=== PATIENT | female | born 1950 ===

== ENCOUNTER 2016-08-29 17:42 | Emergency (ER) | payer OTHER ==
[2016-08-29 17:51] VITALS: BMI 31.8
[2016-08-29 17:54] VITALS: RESP 18; O2SAT 100
[2016-08-29] MEDS ORDERED: Iohexol 240 (50 ml) PO STA (18:21)
[2016-08-29] MEDS ORDERED: Iohexol 240 (50 ml) ONE (18:30)
[2016-08-29 18:37] LABS: BASO % 0.6 % (0.0-2.0); EOS # 0.2 K/uL (0.0-0.7); EOS % 2.5 % (0.0-4.0); HEMATOCRIT 37.1 % (34.0-47.0); LYMPH # 2.9 K/uL (1.0-4.3); LYMPH % 40.5 % (20.0-40.0); MEAN CELL VOLUME 80.4 fL (81.0-99.0); MEAN CORPUSCULAR HEMOGLOBIN 25.8 pg (27.0-31.0); MEAN CORPUSCULAR HGB CONC 32.1 g/dL (33.0-37.0); MEAN PLATELET VOLUME 7.3 fL (7.2-11.7); MONO # 0.6 K/uL (0.0-0.8); MONO % 8.2 % (0.0-10.0); RED CELL DISTRIBUTION WIDTH 14.5 % (11.5-14.5); WHITE BLOOD COUNT 7.2 K/uL (4.8-10.8)
[2016-08-29 18:43] LABS: CHLORIDE 102 mmol/L (98-107); POTASSIUM 4.9 mmol/L (3.6-5.2); SODIUM 140 mmol/L (132-148)
[2016-08-29 18:45] LABS: GFR AFRICAN-AMERICAN > 60
[2016-08-29 18:46] LABS: ALB/GLOB RATIO 1.3 (1.0-2.1); ALKALINE PHOSPHATASE 69 U/L (38-126); ALT/SGPT 36 U/L (9-52); AST/SGOT 50 U/L (14-36); BILIRUBIN,TOTAL 0.8 mg/dL (0.2-1.3); BLOOD UREA NITROGEN 14 mg/dL (7-17); CALCIUM 8.6 mg/dl (8.6-10.4); CARBON DIOXIDE 25 mmol/L (22-30); GLUCOSE,RANDOM 89 mg/dL (65-105); TOTAL PROTEIN 7.6 g/dL (6.3-8.3)
[2016-08-29 18:53] LABS: RBC URINE < 1 /hpf (0-3); URINE BILIRUBIN NEGATIVE (NEGATIVE); URINE BLOOD NEGATIVE (NEGATIVE); URINE COLOR Yellow (YELLOW); URINE GLUCOSE (UA) NORMAL (Normal); URINE KETONE NEGATIVE (NEGATIVE); URINE LEUKOCYTE ESTERASE NEG Leu/uL (Negative); URINE PROTEIN NEGATIVE (NEGATIVE); URINE UROBILINOGEN NORMAL mg/dL (0.2-1.0); WBC URINE 1 /hpf (0-5)
--- NOTE | 2016-08-29 19:50 | C.PDOC ---
History Of Present Illness 65 yr old female presents to the ER with complaints of pain in the right groin area for the past 1 month. Patient states she sometimes also feels like there is a painful ball in the area. States the pain has recently worsened over the past few days. patient denies fever, nausea, vomiting, diarrhea, constipation, dysuria, hematuria, incontinence, back pain, weakness or numbness. Time Seen by Provider: 08/29/16 18:13 Chief Complaint (Nursing): Female Genitourinary History Per: Patient History/Exam Limitations: no limitations Onset/Duration Of Symptoms: Hrs (1 month ), Worse Since (Past few days) Past Medical History Reviewed: Historical Data, Nursing Documentation, Vital Signs Vital Signs: Last Vital Signs Temp 97.6 F 08/29/16 21:46 Pulse 60 08/29/16 21:46 Resp 18 08/29/16 21:46 BP 130/87 08/29/16 21:46 Pulse Ox 100 08/29/16 21:57 Family History: States: No Known Family Hx - Social History Hx Alcohol Use: No Hx Substance Use: No - Immunization History Hx Tetanus Toxoid Vaccination: No Hx Influenza Vaccination: Yes Hx Pneumococcal Vaccination: No Review Of Systems Except As Marked, All Systems Reviewed And Found Negative. Constitutional: Negative for: Fever Gastrointestinal: Negative for: Nausea, Vomiting, Diarrhea, Constipation Genitourinary: Positive for: Other (Pain in the right groin area, with a painful ball feeling. ). Negative for: Dysuria, Incontinence, Hematuria Musculoskeletal: Negative for: Back Pain Neurological: Negative for: Weakness, Numbness Physical Exam - Physical Exam Appears: Well, Non-toxic, No Acute Distress Skin: Warm, Dry, No Rash Head: Atraumatic, Normacephalic Oral Mucosa: Moist Chest: Symmetrical, No Tenderness Cardiovascular: Rhythm Regular, No Murmur Respiratory: Normal Breath Sounds, No Rales, No Rhonchi, No Stridor, No Wheezing Gastrointestinal/Abdominal: Normal Exam, Soft, No Tenderness, No Guarding, No Rebound, Hernia (When asked patient to cough and stand, possible hernia palpated on right. ) Back: Normal Inspection, No CVA Tenderness Extremity: Normal ROM, No Swelling Neurological/Psych: Oriented x3, Normal Speech, Normal Motor ED Course And Treatment - Laboratory Results Result Diagrams: 08/29/16 18:30 08/29/16 18:30 O2 Sat by Pulse Oximetry: 100 - CT Scan/US CT - Abd & Pelvis Other Rad Studies (CT/US): Read By Radiologist, Radiology Report Reviewed CT/US Interpretation: EXAM: CT Abdomen and Pelvis With Intravenous Contrast. CLINICAL HISTORY: 65 years old, female; Pain; Abdominal pain; Flank; Right lower quadrant (rlq); Additional info: Right. groin swelling, hernia? TECHNIQUE: Axial computed tomography images of the abdomen and pelvis with intravenous contrast. This CT. exam was performed using one or more of the following dose reduction techniques: automated. exposure control, adjustment of the mA and/or kV according to patient size, and/or use of iterative. reconstruction technique. Coronal and sagittal reformatted images were created and reviewed. CONTRAST: 100 mL of OMNIPAQUE 350 administered intravenously. COMPARISON: No relevant prior studies available. FINDINGS: Lower thorax: Lung bases clear without infiltrates or lobar pneumonia. ABDOMEN: Liver: Liver is morphologically normal without lesions or abnormal enhancement. Hepatic and portal. veins are patent. Gallbladder and bile ducts: Unremarkable. No calcified stones. No ductal dilation. No significant. wall thickening. Pancreas: Normal pancreas without surrounding fluid or inflammation. No ductal dilation. Spleen: Unremarkable. No splenomegaly. Adrenals: The adrenal glands are normal. Kidneys and ureters: Symmetric renal enhancement is present. No suspicious renal mass,. perinephric collection, or hydronephrosis. The ureters are normal. Stomach and bowel: The stomach is normal without gastric wall thickening or mucosal edema. Bowel loops appear within normal limits, no signs of wall thickening, mucosal edema, or bowel. distention. Appendix: The appendix is not definitively visualized. However, no secondary signs of appendicitis. are present. PELVIS: Bladder: Unremarkable. No mass. Reproductive: Unremarkable as visualized. ABDOMEN and PELVIS: Intraperitoneal space: Unremarkable. No free air. No significant fluid collection. Bones/joints: There is severe intervertebral disc height loss and adjacent sclerosis and vacuum disc. phenomena associated with L5-S1 No acute fracture. No dislocation. Soft tissues: Fat-containing small right inguinal hernia is present. Vasculature: The aorta and IVC appear within normal limits. Lymph nodes: Unremarkable. No enlarged lymph nodes. IMPRESSION: No evidence for bowel herniation, bowel obstruction, colitis, appendicitis or diverticulitis. No gross ureteral stone or obstructive uropathy is visualized. Appendix is not definitively seen. Degenerative disc disease as described. Progress Note: Patient has small fat containing inguinal hernia. Patient was d/ c home with general surgery follow up. Medical Decision Making Medical Decision Making: PLAN: * CT - Abd & Pelvis * CBC * Urinalysis Disposition - Disposition Referrals: Chalo Diamond MD [Staff Provider] - Disposition: HOME/ ROUTINE Disposition Time: 21:54 Condition: STABLE Additional Instructions: Follow up with PMD/General transfer specialist within 1-2 days. return to ED if feel worse. Prescriptions: traMADol [Ultram] 50 mg PO Q6 #30 tab Instructions: Inguinal Hernia (ED) Print Language: CITIZEN OF [place] - Clinical Impression Clinical Impression: Inguinal hernia - PA / TIRE RECAPPER / Resident Statement MD/DO has reviewed & agrees with the documentation as recorded. - Scribe Statement The provider has reviewed the documentation as recorded by the Scribe Zoraida Hoffman All medical record entries made by the Scribe were at my direction and personally dictated by me. I have reviewed the chart and agree that the record accurately reflects my personal performance of the history, physical exam, medical decision making, and the department course for this patient. I have also personally directed, reviewed, and agree with the discharge instructions and disposition.
[2016-08-29] MEDS ORDERED: Iohexol 350mg/ml 100 ML ONE (20:05)
[2016-08-29 21:48] VITALS: BP 130/87; PULSE 60; TEMP 97.6
--- NOTE | 2016-08-30 08:36 | CT ---
PROCEDURE: CT Abdomen and Pelvis with contrast HISTORY: right groin swelling, hernia? COMPARISON: None. TECHNIQUE: Contrast dose: 100 cc Visipaque [id number] Radiation dose: Total exam DLP = mGy-cm. This CT exam was performed using one or more of the following dose reduction techniques: Automated exposure control, adjustment of the mA and/or kV according to patient size, and/or use of iterative reconstruction technique. FINDINGS: LOWER THORAX: Unremarkable. LIVER: Unremarkable. No gross lesion or ductal dilatation. GALLBLADDER AND BILE DUCTS: Unremarkable. PANCREAS: Unremarkable. No gross lesion or ductal dilatation. SPLEEN: Unremarkable. ADRENALS: Unremarkable. No mass. KIDNEYS AND URETERS: Unremarkable. No hydronephrosis. No solid mass. VASCULATURE: Unremarkable. No aortic aneurysm. BOWEL: Unremarkable. No obstruction. No gross mural thickening. APPENDIX: No abnormalities to suggest acute appendicitis. No right lower quadrant inflammatory processes identified. PERITONEUM: Unremarkable. No free fluid. No free air. LYMPH NODES: Unremarkable. No enlarged lymph nodes. BLADDER: Unremarkable. REPRODUCTIVE: Unremarkable. BONES: No acute fracture. OTHER FINDINGS: Unilateral, right inguinal hernia containing fat only IMPRESSION: No acute findings related to/accounting for the clinical presentation. Additional benign and/or incidental findings described above. Concordant results (preliminary interpretation) provided by [facility]. Procedure Completed: 20:08. Preliminary ([facility]) Report: Dictated and Authenticated: 20:26. Final Interpretation: 08:34. August 30, 2016.
== END 2016-08-29 22:23 | disposition home or self-care (01) ==
LOC: C.ER 17:42 → MERGE 17:42 → C.ER 22:23
DX: K40.90 Unilateral inguinal hernia, without obstruction or gangrene, not specified as recurrent (principal)
CPT/HCPCS: 74177; 80053; 81001; 83690; 85025; 99284; Q9966; Q9967